=== PATIENT | female | born 1985 | race Caucasian/White ===

== ENCOUNTER → 2016-10-02 | Outpatient (CLI) | payer OTHER ==
--- NOTE | 2016-10-02 14:28 | KCIC ---
PROCEDURE Obstetrics sonogram. HISTORY Size greater than dates. TECHNIQUE Sonographic imaging of the gravid uterus was performed. COMPARISON 06/07/2016 FINDINGS There is a single intrauterine fetus in cephalic presentation with a heart rate of 141 beats per minute. The cervix is long and closed, measuring 5.6 cm. There is a posterior placenta without evidence of placenta previa. The amniotic fluid index is normal at 9.7 cm. The biparietal diameter is 9.4 cm, corresponding with 38 weeks and 1 day. The head circumference is 34.1 cm, corresponding with 39 weeks and 2 days. The abdominal circumference is 33.8 cm, corresponding with 37 weeks and 5 days. The femoral length is 7.2 cm, corresponding with 36 weeks and 6 days. The head circumference to abdominal circumference ratio is 1.01. The estimated gestational age based on combined ultrasound measurements is 38 weeks and 0 days and the estimated weight is 3290 grams. This is at the 67th percentile. IMPRESSION Single intrauterine fetus in cephalic presentation with a heart rate of 141 beats per minute and estimated gestational age based on current sonographic measurements of 38 weeks and 0 days. This is at the 67th percentile. This is 1 week and 5 days greater than the estimated gestational age based on a sonogram performed 06/07/2016. Electronically signed by: Kathy Wade (Oct 02, 2016 14:26:02)
== END | disposition home or self-care (01) ==
LOC: KCIC US 13:19
PROVIDERS: ATTEND Advanced Practice Midwife
DX: Z34.93 Encounter for supervision of normal pregnancy, unspecified, third trimester (principal); Z3A.38 38 weeks gestation of pregnancy
CPT/HCPCS: 76805

== ENCOUNTER → 2016-11-01 | Outpatient (CLI) | payer OTHER ==
--- NOTE | 2016-11-01 14:53 | KCIC ---
PROCEDURE Biophysical profile HISTORY Post term COMPARISON Obstetrical ultrasound October 02, 2016 FINDINGS Multiple sonographic images from a biophysical profile are submitted. There was 8 of 8 scoring for the biophysical profile which assessed for amniotic fluid volume, tone, motion, and breathing movement. There is fundal placenta. There is cephalic presentation of the single intrauterine fetus. Estimated EMILEE 12.6 centimeters. Estimated heart rate was 147 beats per minute. Biparietal diameter 9.81 centimeters corresponds with 40 weeks 1 day. Head circumference 35.53 centimeters corresponds with 41 weeks 4 days. Abdominal circumference 37.14 centimeters corresponds with 41 weeks 1 day. Femur length 7.97 centimeters corresponds with 40 weeks 5 days. Adjusted ultrasound age 40 weeks 6 days with estimated delivery date by ultrasound of 10/26/2016. Estimated weight 4248 grams +/-629 grams. HC/AC ratio 0.96. anatomy was not fully evaluated on this exam. IMPRESSION 1. There is 8 of 8 scoring for the biophysical profile. There is cephalic presentation of the single intrauterine fetus. Electronically signed by: Tho Chan MD (Nov 01, 2016 14:52:28)
== END | disposition home or self-care (01) ==
LOC: KCIC US 13:42
PROVIDERS: ATTEND Advanced Practice Midwife
DX: O48.0 Post-term pregnancy (principal)
CPT/HCPCS: 76819